=== PATIENT | male | born 1955 | race Caucasian/White ===

== ENCOUNTER 2020-04-27 13:50 | Emergency (ER) | payer MEDICARE, SELFPAY ==
[2020-04-27 14:13] VITALS: BP 113/79; PULSE 89; RESP 25; TEMP 36.7; O2SAT 98; BMI 21.3
--- NOTE | 2020-04-27 14:15 | ECG_ITS ---
[facility] Test Date: 2020-04-27 Pat Name: Ga Vanegas Department: Room: Gender: Male Videogame Tester: HE : 1955 Requested By: Eliu Coates Order Number: [id number] Reading MD: KYRA KING Measurements Intervals [place] Rate: 94 P: 62 [place]: 204 QRS: -10 QRSD: 107 T: 181 QT: 364 QTc: 456 Interpretive Statements SINUS RHYTHM POSSIBLE LEFT ATRIAL ENLARGEMENT [-0.1mV P WAVE IN V1/V2] POSSIBLE ANTERIOR MYOCARDIAL INFARCTION [30 ms Q WAVE IN V3/V4, OR R < 0.2 mV IN V4], OF INDETERMINATE AGE No previous ECG available for comparison Electronically Signed On 04-27-2020 18:01:49 WOOD LATHE OPERATOR by KYRA KING [id number]
--- NOTE | 2020-04-27 14:15 | XR_ITS ---
WS: [id number] PORTABLE CHEST HISTORY: chest pain COMPARISON: None available. Mild pulmonary venous congestion. Moderate RIGHT pleural effusion. Small LEFT pleural effusion. Cardiac size: Moderately enlarged heart. Mediastinum/Aorta: Mild atherosclerosis aorta. No osseous abnormality seen. XR/XR chest 1V portable [id number] IMPRESSION: 1. Mild pulmonary venous congestion and moderate cardiomegaly. 2. Moderate RIGHT and small LEFT pleural effusions.
--- NOTE | 2020-04-27 14:33 | USCV_ITS ---
Ga Vanegas Age: 64 Gender: M : 1955 Exam Date: 04/27/2020 14:56 Ordering Phys: Eliu Porter DO Technologist: Sunny Bailey Exam Location: [facility] [place] Indication: COLD FEET POOR PULSES Risk Factors: Smoker Previous Vascular Surgery: None RIGHT LEFT BP: 120.0 / 92.00 BP: 120.0/ 90.00 0 0 Waveform Velocity (cm/s) Velocity (cm/s) Waveform Triphasic 53.5 Iliac Prox 21.2 Triphasic Triphasic Iliac Mid Triphasic 48.2 26.7 Triphasic 53.5 Iliac Distal 23.0 Triphasic Triphasic 39.2 OPHTHALMIC MEDICAL TECHNOLOGIST 31.0 Triphasic Triphasic 49.0 SFA Prox 43.5 Triphasic Triphasic 38.4 SFA Mid 40.9 Triphasic Triphasic 37.7 SFA Dist 34.0 Triphasic Triphasic 21.2 POP 17.0 Triphasic Triphasic 36.1 QUARTER BACKER 33.6 Biphasic Triphasic 34.0 DPA 13.7 Biphasic 1.0 JOSE 1.0 FINDINGS Normal or near normal arterial Doppler waveforms. Normal arterial Doppler flow velocities. Normal resting ABIs bilaterally CONCLUSIONS No significant arterial obstruction, based on the above findings Dr Alpa Quintanilla MD [facility] (Electronically Signed) Final Date: 28 April 2020 14:24 S
--- NOTE | 2020-04-27 14:35 | ED_ITS ---
HPI - Chest Pain General: Chief Complaint: Chest Pain Stated Complaint: Legs swollen/Pain/SOB Time Seen by Provider: 04/27/20 14:15 History of Present Illness: HPI narrative: 64-year-old male presents emergency room is 2 separate complaints he has some chest discomfort that he gets from time to time along with shortness of breath with exertion. He is not having any pain now he did have some earlier today talking to him his something that occurs very regularly. He has no known history of coronary disease. He does have a history of COPD. And is a little more short of breath today is not had a productive cough no flulike symptoms. In addition he has bilateral painful lower extremities the lower half of his lower legs and his feet bilaterally. I cannot palpate pulses at the bedside. He states he was outside riding in a tractor and is socks froze to his feet when he got home he took them off and have been painful ever since. He went to see his primary care nurse practitioner and it was directed here because it was cool pulseless feet. Patient is a heavy smoker although he states he is cut back from the much as he used to smoke. MD complaint: chest pain Onset (ago): hour(s) Timing of current episode: episodic Prior episodes: Yes Onset: during exertion Pain location: substernal and left chest Pain radiation: none Severity: mild Quality: heaviness Relieving factors: rest Exacerbating factors: exertion Associated symptoms: Deny abdominal pain, diaphoresis, dyspnea, fever(s), leg edema, nausea, palpitations, sense of impending doom, syncope or vomiting Treatment prior to arrival: none Review of Systems Const: Denies: fever(s) or diaphoresis ENMT: Denies: throat pain, ear or mastoid pain, nasal discharge or nasal congestion Card: Denies: palpitations or syncope Resp: Denies: dyspnea GI: Denies: abdominal pain, nausea or vomiting : Denies: flank pain, dysuria, urinary frequency or urinary urgency Skin/Breast: Denies: rash or pruritus Physical Exam Const: COMMON NORMALS: no acute distress GENERAL APPEARANCE: cooperative and comfortable HENMT: COMMON NORMALS: normocephalic, atraumatic and hearing grossly normal bilaterally HEAD & SCALP: normocephalic and atraumatic Neck/C-Spine: COMMON NORMALS: no JVD Lymph: LYMPHATIC: no lymphadenopathy noted and no lymphedema noted Resp: COMMON NORMALS: normal respiratory effort, No retractions, No use of accessory muscles and clear to auscultation bilaterally AUSCULTATION: clear to auscultation bilaterally Cardio: COMMON NORMALS: no JVD, regular rate, regular rhythm and No murmurs present (Cardio) RATE: regular rate RHYTHM: regular rhythm GI: COMMON NORMALS: Soft to palpation and No hepatosplenomegaly present AUSCULTATION: Yes normoactive bowel sounds PALPATION: Yes Soft to palpation, No Tenderness to palpation present (GI), No Guarding due to palpation present (GI) and Yes No hepatosplenomegaly present Extremity: NARRATIVE EXTREMITY EXAM: Cool to the touch on the lower extremity no palpable pulses. No necrotic areas. No active wounds. Course Vital Signs: Vital signs: Vital Signs Temperature 98.0 F 04/27/20 14:13 Pulse Rate 81 04/27/20 16:28 Respiratory Rate 33 H 04/27/20 16:28 Blood Pressure 107/84 04/27/20 16:28 Pulse Oximetry 96 04/27/20 16:28 MDM - Chest Pain MDM Narrative: Medical decision making narrative: Duplex shows good blood flow. He does have some discoloration of his hands and feet I think he has basically a Raynaud's type phenomenon from his smoking discussed this with him. He did have an episode of chest pain is troponin is negative. Working to discharge him home and have him set up for a outpatient sestamibi stress test return if has further problems encouraged to stop smoking start aspirin daily. Lab Data: Labs: Lab Results 04/27/20 04/27/20 04/27/20 Range/Units 14:30 14:30 14:30 WBC 6.7 (4.0-10.0) 10^3/ uL RBC 4.55 (4.1-5.3) 10^6/u L Hgb 14.3 (11.7-16.6) g/dL Hct 45.3 (42.0-52.0) % MCV 99.6 H (80-94) fL MCH 31.4 (28.0-34.0) pg MCHC 31.6 (30.0-36.0) g/dL RDW 13.0 (12.1-15.1) % Plt Count 331 (130-400) 10^3/c mm MPV 9.5 (7.4-10.4) fL Neut % (Auto) 70.5 % Lymph % (Auto) 20.4 % Stark % (Auto) 7.9 % Eos % (Auto) 0.4 % Baso % (Auto) 0.7 % Neut # (Auto) 4.69 (1.8-7.7) 10^3/u L Lymph # (Auto) 1.4 (0.8-4.8) 10^3/u L Stark # (Auto) 0.5 (0.2-0.9) 10^3/u L Eos # (Auto) 0.0 (0.0-0.8) 10^3/u L Baso # (Auto) 0.1 (0.0-0.1) 10^3/u L Nucleated RBC % (a uto) 0 % Nucleated RBCs # 0.0 /100WBC Sodium 145 (136-145) mmol/L Potassium 3.9 (3.5-5.1) mmol/L Chloride 105 (98-107) mmol/L Carbon Dioxide 28 (22-29) mmol/L Anion Gap 15.9 (5-19) BUN 13 (8-23) mg/dL Creatinine 0.8 (0.7-1.2) mg/dL GFR Calculation 97.0 (90-130) mL/min Glucose 75 (65-115) mg/dL Calculated Osmolal ity 299 H (285-295) mOsm/k g Calcium 9.1 (8.5-10.5) mg/dL Total Bilirubin 0.7 (0.15-1.2) mg/dL AST 20 (0-40) U/L ALT 20 (0-41) U/L Alkaline Phosphata se 122 (40-130) IU/L Troponin T Baselin e 34 H (0-15) ng/L Troponin T 120 Min emmonak (0-15) ng/L Delta Troponin T (0-10) ABS# Total Protein 6.5 L (6.6-8.7) g/dL Albumin 4.1 (3.5-5.2) g/dL Globulin 2.4 (1.3-4.6) g/dL 04/27/20 Range/Units 16:13 WBC (4.0-10.0) 10^3/ uL RBC (4.1-5.3) 10^6/u L Hgb (11.7-16.6) g/dL Hct (42.0-52.0) % MCV (80-94) fL MCH (28.0-34.0) pg MCHC (30.0-36.0) g/dL RDW (12.1-15.1) % Plt Count (130-400) 10^3/c mm MPV (7.4-10.4) fL Neut % (Auto) % Lymph % (Auto) % Stark % (Auto) % Eos % (Auto) % Baso % (Auto) % Neut # (Auto) (1.8-7.7) 10^3/u L Lymph # (Auto) (0.8-4.8) 10^3/u L Stark # (Auto) (0.2-0.9) 10^3/u L Eos # (Auto) (0.0-0.8) 10^3/u L Baso # (Auto) (0.0-0.1) 10^3/u L Nucleated RBC % (a uto) % Nucleated RBCs # /100WBC Sodium (136-145) mmol/L Potassium (3.5-5.1) mmol/L Chloride (98-107) mmol/L Carbon Dioxide (22-29) mmol/L Anion Gap (5-19) BUN (8-23) mg/dL Creatinine (0.7-1.2) mg/dL GFR Calculation (90-130) mL/min Glucose (65-115) mg/dL Calculated Osmolal ity (285-295) mOsm/k g Calcium (8.5-10.5) mg/dL Total Bilirubin (0.15-1.2) mg/dL AST (0-40) U/L ALT (0-41) U/L Alkaline Phosphata se (40-130) IU/L Troponin T Baselin e (0-15) ng/L Troponin T 120 Min emmonak 32.81 H (0-15) ng/L Delta Troponin T -1.19 L (0-10) ABS# Total Protein (6.6-8.7) g/dL Albumin (3.5-5.2) g/dL Globulin (1.3-4.6) g/dL Discharge Plan Discharge Patient Disposition: Home Clinical Impression: Atypical chest pain, COPD (chronic obstructive pulmonary disease), Continuous tobacco abuse Condition: Stable Prescriptions: New aspirin 81 mg tablet,delayed release (DR/EC) 81 mg PO DAILY Qty: 30 RF: 0 No Action multivitamin Tablet 1 tab PO DAILY RF: 0 Tylenol 325 mg Tablet 325 - 650 mg PO Q6H PRN (Reason: Pain) RF: 0 Vitamin B-12 1 tab PO DAILY RF: 0 Discharge Orders: Discharge ED (Routine); Ordered 04/27/20 Ordered By: lEiu Porter Discharge Diet: Cardiac Discharge Activity: Limit activity as instructed Activity Restrictions/Additional Instructions: Management will call to set up a sestamibi stress test for you as an outpatient. Return if you have further problems. Coding Level of Care Code ED District Manager Major Accounts Sales for Carol Fweneida Exam Detailed
[2020-04-27 14:46] LABS: Basophils # 0.1 10^3/uL (0.0-0.1); Basophils % 0.7 %; Eosinophils % 0.4 %; Hematocrit 45.3 % (42.0-52.0); Hemoglobin 14.3 g/dL (11.7-16.6); Lymphocytes # 1.4 10^3/uL (0.8-4.8); Lymphocytes % 20.4 %; Mean Corpuscular HGB Conc 31.6 g/dL (30.0-36.0); Mean Corpuscular Hemoglobin 31.4 pg (28.0-34.0); Mean Corpuscular Volume 99.6 fL (80-94); Mean Platelet Volume 9.5 fL (7.4-10.4); Monocytes # 0.5 10^3/uL (0.2-0.9); Monocytes % 7.9 %; Neutrophils # 4.69 10^3/uL (1.8-7.7); Neutrophils % 70.5 %; Nucleated Red Blood Cells % 0 %; Platelet Count 331 10^3/cmm (130-400); Red Blood Count 4.55 10^6/uL (4.1-5.3); White Blood Count 6.7 10^3/uL (4.0-10.0)
[2020-04-27 15:02] LABS: Alanine Aminotransferase 20 U/L (0-41); Albumin Level 4.1 g/dL (3.5-5.2); Alkaline Phosphatase 122 IU/L (40-130); Anion Gap 15.9 (5-19); Aspartate Amino Transferase 20 U/L (0-40); Blood Urea Nitrogen 13 mg/dL (8-23); Calcium 9.1 mg/dL (8.5-10.5); Carbon Dioxide 28 mmol/L (22-29); Chloride 105 mmol/L (98-107); Globulin 2.4 g/dL (1.3-4.6); Glucose 75 mg/dL (65-115); Osmolality Calculated 299 mOsm/kg (285-295); Potassium 3.9 mmol/L (3.5-5.1); Sodium 145 mmol/L (136-145); Total Bilirubin 0.7 mg/dL (0.15-1.2); Total Protein 6.5 g/dL (6.6-8.7)
[2020-04-27 15:04] LABS: Troponin(5th) Baseline 34 ng/L (0-15)
[2020-04-27 15:28] VITALS: BP 118/92; PULSE 92; RESP 33; O2SAT 96; O2SAT 98
--- NOTE | 2020-04-27 16:15 | ECG_ITS ---
[facility] Test Date: 2020-04-27 Pat Name: Ga Vanegas Department: Room: Gender: Male Android Architect: HE : 1955 Requested By: Eliu Coates Order Number: [id number] Paul MD: Alpa Quintanilla M.D. Measurements Intervals [place] Rate: 138 P: 63 VT: 207 QRS: -18 QRSD: 110 T: 184 QT: 369 QTc: 560 Interpretive Statements SINUS TACHYCARDIA WITH FREQUENT VENTRICULAR PREMATURE COMPLEXES ST DEVIATION AND MODERATE T-WAVE ABNORMALITY, CONSIDER LATERAL ISCHEMIA [-0.1+ mV T WAVE IN I/aVL/V5/V6] No previous ECG available for comparison Electronically Signed On 04-28-2020 20:15:51 COTTRELL BLOWER by Alpa Quintanilla M.D. [id number]
[2020-04-27 16:28] VITALS: BP 107/84; PULSE 81; RESP 33; O2SAT 96
[2020-04-27 16:37] LABS: Troponin 5 2HR 32.81 ng/L (0-15)
[2020-04-27 16:38] LABS: Troponin 5 2HR Delta -1.19 ABS# (0-10)
[2020-04-27 17:00] VITALS: BP 128/84; PULSE 83; RESP 30; O2SAT 97
[2020-04-27 17:49] VITALS: BP 128/84; PULSE 83; RESP 30; O2SAT 97
--- NOTE | 2020-04-28 10:00 | DCPLANNER ---
pharmacy informatics manager had message to schedule an outpatient stress test for patient. pharmacy informatics manager got order signed, faxed the order to centralized scheduling, will call for appointment information.
--- NOTE | 2020-05-04 13:10 | DCPLANNER ---
Patient had stess test scheduled on 05/04/20 @ 0845 - appt cancelled
== END 2020-04-27 17:52 | disposition home or self-care (01) ==
PROVIDERS: Emergency Provider Family Medicine
DX: R07.89 Other chest pain (principal); J44.9 Chronic obstructive pulmonary disease, unspecified
CPT/HCPCS: 12345; 71045; 80053; 84484; 85025; 93005; 93925; 99283; 99284

== ENCOUNTER 2020-04-29 18:40 | Inpatient (IN) | payer MEDICARE, SELFPAY ==
[2020-04-29 19:21] VITALS: BMI 23.8
[2020-04-29 19:22] VITALS: BP 118/84; PULSE 91; RESP 16; TEMP 36.1; O2SAT 98
[2020-04-29 20:00] VITALS: BP 114/78; PULSE 83; RESP 22; TEMP 36.9; O2SAT 98
[2020-04-29 20:39] VITALS: PULSE 83
--- NOTE | 2020-04-29 20:44 | P.HP_ITS ---
Providers/Chief Complaint Admitting Physician: León Hagan MD Chief Complaint: COPD, CHF History of Present Illness Ga Vanegas is a 64 year old male recently diagnosed with congestive heart failure presented to the emergency department at [place] with a complaint of progressive shortness of breath and chest pain. Patient was in the emergency department a couple of days ago where his chest x-ray demonstrated pulmonary vascular congestion, small bilateral pleural effusion and cardiomegaly. Patient was diagnosed with atypical chest pain, his troponin was negative and was therefore discharged to have a stress test done as an outpatient. Patient was noted to have cyanosis of both hands and feet. Arterial Doppler of the lower extremities was done which was reported as normal with no significant arterial occlusion. Patient was at [facility] today where repeat chest x-ray demonstrated pulmonary vascular congestion. He was given IV Lasix, bronchodilators and then referred to be directly admitted here for further management of CHF. Patient stated he was feeling better when I saw him for examination on the medical floor. Review of Systems Narrative: Patient at the moment denies any chest pain. He denies any hea dache, he denies any palpitation. He endorsed orthopnea. Except as documented, all other systems reviewed and negative. Medications/Allergies Home Medications Medication Instructions Recorded Confirmed Last Taken Type aspirin 81 mg PO DAILY #30 tab 04/27/20 04/30/20 04/29/20 Rx Allergies Allergy/AdvReac Type Severity Reaction Status Date / Time No Known Allergies Allergy Verified 04/30/20 03:21 PFSH Acute PFSH: Medical History (Updated 04/30/20 @ 07:58 by Kameron Leger MD) Atypical chest pain Continuous tobacco abuse COPD (chronic obstructive pulmonary disease) Family History (Updated 04/29/20 @ 21:09 by Kameron Leger MD) Father CAD (coronary artery disease) Social History (Updated 04/29/20 @ 21:09 by Kameron Leger MD) Smoking and tobacco status: current every day smoker Alcohol intake: current Alcohol intake frequency: few times a week Substance/Drug Use: never Housing: House Vitals/I&O/Wt Last Vital Signs Temp 98.4 F 04/29/20 20:00 Pulse 83 04/29/20 20:00 Resp 22 H 04/29/20 20:00 BP 114/78 04/29/20 20:00 Pulse Ox 98 04/29/20 20:00 Weight last 48 hrs Weight 70.896 kg Physical Exam Const: COMMON NORMALS: no acute distress, patient oriented x3 and alert GENERAL APPEARANCE: disheveled HENMT: COMMON NORMALS: normocephalic and atraumatic MOUTH: Normal oral and palatal mucosa present Eye: COMMON NORMALS: Equal, round and reactive pupils present, EOMs intact bilaterally, conjunctivae normal and no scleral icterus Neck/C-Spine: COMMON NORMALS: supple, no JVD and Thyroid normal Lymph: LYMPHATIC: no lymphadenopathy noted Chest: COMMONS NORMALS: normal inspection of the chest and normal palpation of entire chest wall Resp: COMMON NORMALS: normal respiratory effort, No retractions and No use of accessory muscles AUSCULTATION: rales bilateral at the base Cardio: COMMON NORMALS: regular rate, regular rhythm, S1 normal heart sound present, S2 normal heart sound present and No murmurs present (Cardio) GI: COMMON NORMALS: Normal to inspection, nondistended, normoactive bowel sounds present, Soft to palpation, non-tender, No hepatosplenomegaly present and no bruits : COMMON NORMALS: Yes no CVA tenderness Back/Pelvis: COMMON NORMALS: thoraco-lumbar ROM normal Extremity: GENERAL: Yes cyanosis (Bilateral feet up to ankles. Bilateral hands) Neuro: COMMON NORMALS: patient oriented x3, CN's II-XII intact bilaterally, no focal motor deficits and no sensory deficits noted Psych: COMMON NORMALS: mental status grossly normal, Normal thought process present, cooperative, normal affect and speech normal Skin: GENERAL SKIN EXAM: no rashes or lesions noted and turgor normal Data : 04/30/20 05:27 04/30/20 05:27 A&P Assessment and plan (1) Acute heart failure: Status: Acute (2) Peripheral cyanosis: Status: Acute (3) COPD (chronic obstructive pulmonary disease): Status: Chronic (4) Continuous tobacco abuse: Status: Chronic Additional A&P Information Admit patient to the medical floor. Start IV Lasix 40 mg every 12 hours. Trend troponin Obtain echocardiogram Bronchodilators. COVID-19 test done at [place] is presumptively negative. Consult to cardiology. Daily weight, monitor input and output. Check arterial blood gas. Patient will need outpatient work-up for Raynaud's disease given peripheral cyanosis. it could be smoking-related. Patient advised to quit smoking. Attestations Medical Necessity Statement*: Patient need to be hospitalized for further evaluation and manage management of acute congestive heart failure. He is expected to spend more than 2 midnights. Time Spent in Patient Care: 63 minutes. Coding Level of Care Code Acute General Machinist for Celso Fwd Exam Comprehensive Diagnoses Acute heart failure I50.9 Peripheral cyanosis R23.0 COPD (chronic obstructive pulmonary disease) J44.9 Continuous tobacco abuse Z72.0
[2020-04-29] MEDS: FUROsemide 10 mg/mL SDV 4mL 40 MG IVP (21:08)
[2020-04-29] MEDS: enoxaparin 40 mg/0.4 mL Syringe SUBCUT (21:11)
[2020-04-30] VITALS: BP 108/73; PULSE 86; RESP 26; TEMP 36.6; O2SAT 93
[2020-04-30] MEDS: acetaminophen 325 mg Tablet 650 MG PO ×2 (02:24→20:22)
[2020-04-30 04:00] VITALS: BP 117/82; PULSE 90; RESP 24; TEMP 36.6; O2SAT 96
[2020-04-30 06:16] LABS: Basophils % 0.1 %; Hematocrit 44.2 % (42.0-52.0); Hemoglobin 14.1 g/dL (11.7-16.6); Lymphocytes # 0.5 10^3/uL (0.8-4.8); Mean Corpuscular HGB Conc 31.9 g/dL (30.0-36.0); Mean Corpuscular Hemoglobin 31.5 pg (28.0-34.0); Mean Corpuscular Volume 98.7 fL (80-94); Monocytes # 0.8 10^3/uL (0.2-0.9); Neutrophils # 6.39 10^3/uL (1.8-7.7); Neutrophils % 82.6 %; Nucleated Red Blood Cells % 0 %; Platelet Count 319 10^3/cmm (130-400); Red Blood Count 4.48 10^6/uL (4.1-5.3); Red Cell Distribution Width 12.9 % (12.1-15.1); White Blood Count 7.7 10^3/uL (4.0-10.0)
--- NOTE | 2020-04-30 06:42 | PC.NURSE ---
Report to Anita GUZMAN at this time.
[2020-04-30 06:46] LABS: Anion Gap 11.6 (5-19); Blood Urea Nitrogen 20 mg/dL (8-23); Calcium 9.1 mg/dL (8.5-10.5); Carbon Dioxide 33 mmol/L (22-29); Chloride 98 mmol/L (98-107); Chol HDL Ratio 2.98 mg/dL (1.0-5.00); Cholesterol 152 mg/dL (0-200); Creatinine Clr Calc Pharmacy 90.0557; Glucose 88 mg/dL (65-115); HDL Cholesterol 51 mg/dL (60-100); LDL Cholesterol Calculated 89 mg/dL (50-129); LDL HDL Ratio 1.75 RATIO (0.00-3.22); Magnesium 2.1 mg/dL (1.7-2.3); Osmolality Calculated 290 mOsm/kg (285-295); Phosphorus 4.3 mg/dL (2.5-4.5); Potassium 3.6 mmol/L (3.5-5.1); Sodium 139 mmol/L (136-145); Thyroid Stimulating Hormone 0.61 uIU/mL (0.27-4.20); Triglycerides 61 mg/dL (0-150)
[2020-04-30 07:10] LABS: Estmated Average Glucose 123; Hemoglobin A1C 5.9 % (4.0-6.0)
[2020-04-30 08:00] VITALS: BP 121/84; PULSE 69; RESP 17; TEMP 37.1; O2SAT 95
[2020-04-30] MEDS: aspirin 81 mg EC Tablet PO (08:58)
[2020-04-30] MEDS: FUROsemide 10 mg/mL SDV 4mL 40 MG IVP ×2 (08:58→20:22)
--- NOTE | 2020-04-30 11:04 | PM.PN ---
Subjective Subjective: Interval history: Patient reports feeling better today. He is less short of breath. Reports that he has been having gradually worsening lower extremity swelling and dyspnea on exertion. He does report off-and-on chest discomfort on the left with exertion for the last year or so. Vitals/I&O/Wt Last Vital Signs Temp 98.8 F 04/30/20 08:00 Pulse 69 04/30/20 08:00 Resp 17 04/30/20 08:00 BP 121/84 04/30/20 08:00 Pulse Ox 95 04/30/20 08:00 04/29/20 04/30/20 04/30/20 22:59 06:59 14:59 Intake Total 240 / 240 240 / 480 360 / 360 Output Total 1400 / 1400 Balance 240 / 240 -1160 / -920 360 / 360 Weight last 48 hrs Weight 70.307 kg Weight 70.896 kg Physical Exam Narrative: EXAM NARRATIVE: Minimal bibasilar Rales. Heart is regular. Abdomen soft and nontender with positive bowel sounds. 1+ lower extremity edema. Data : 04/30/20 05:27 04/30/20 05:27 A&P Assessment and plan (1) Acute heart failure: Status: Acute (2) Peripheral cyanosis: Status: Acute (3) COPD (chronic obstructive pulmonary disease): Status: Chronic (4) Continuous tobacco abuse: Status: Chronic (5) Stable angina: Status: Acute Additional A&P Information PLAN: Continue with diuresis. Awaiting echocardiogram and depending on findings we will consider further cardiac evaluation on outpatient versus inpatient basis. Attestations Medical Necessity Statement*: Patient with stable angina and heart failure requires close inpatient monitoring, treatment and evaluation. Time Spent in Patient Care: 16 - 35 minutes Coding Level of Care Code Acute Spotlight Operator for [facility] Fwd Diagnoses Acute heart failure I50.9 Peripheral cyanosis R23.0 COPD (chronic obstructive pulmonary disease) J44.9 Continuous tobacco abuse Z72.0 Stable angina I20.8
[2020-04-30 11:24] VITALS: BP 116/79; PULSE 75; RESP 16; TEMP 37.2; O2SAT 94
--- NOTE | 2020-04-30 13:36 | PC.CHAP ---
Pastoral Care Encounter/Spiritual Assessment Type of Contact [] Declined industrial relations analyst visit [] Patient/Family/Request visit [] Outpatient visit [] Follow-up visit [] Physician referral [] Code/Alert [xx] Routine visit [] Staff referral [] Actively dying [] Patient sleeping [] Family support [] [] Out of room [] Palliative care [] [] Receiving care in room [] Pre-surgical visit [] Trauma [] Long length of stay [] ICU visit [] Other: Relational/Emotional Strength [xx] Patient feels connected with others/family/visitors/staff [] Distress [] Loneliness/isolation [] Abandonment Spirituality of Patient [xx] Person of Yue [] Attends Evangelical of their Yue [xx] Believes in Prayer [] Reads Bible or Restoration materials [] There are Spiritual issues to be addressed Process Steward Interventions [xx] Prayer [xx] Active listening [] Non-anxious presence [] Spiritual/emotional support [] Crisis/trauma care [] Spiritual counseling [] Bereavement support [] Provided bereavement packet [] Provided Bible/devotional materials [] Provided toy/stuffed animal, coloring book to patient or family member [] Provided Communion [] Anointing/Pomaria [] Salvation [xx] Completed spiritual assessment [] Other: Impact on Illness or Injury [] Angry [] Fearful [] Anxious [] Often cries [] Exhaustion [] Unable to work [] Unable to attend mandaeism [] Unable to walk/stand [] Unable to read [] Unable to drive [] Unable to eat/drink [] Unable to sleep [] Unable to be with family [] Patient intubated [] Other: Summary Patient was concerned about what tests and their outcome might be. He anticipates another 2 - 3 days in hospital. Process Steward prayed accordingly. Time spent with patient 6 minutes
--- NOTE | 2020-04-30 14:30 | PC.RESP ---
Smoking Cessation and Pulmonary Rehab information sent to patient.
--- NOTE | 2020-04-30 15:49 | PC.NURSE ---
Dr. Hagan notified of request for nicotine patch, new order received, see MAR for further details.
[2020-04-30 16:00] VITALS: BP 116/79; PULSE 75; RESP 16; TEMP 37.2; O2SAT 94
[2020-04-30] MEDS: nicotine 21 mg Patch 1 PATCH TRANSDERMA (16:47)
[2020-04-30 20:00] VITALS: BP 110/80; PULSE 92; RESP 18; TEMP 36.3; O2SAT 97
[2020-04-30] MEDS: enoxaparin 40 mg/0.4 mL Syringe SUBCUT (20:22)
--- NOTE | 2020-04-30 20:39 | USCV_ITS ---
Ga Vanegas Age: 64 Gender: M : 1955 Exam Date: 04/30/2020 05:38 Ordering Phys: Kameron Leger MD Technologist: Sunny Bailey Exam Location: [facility] [place] Indication: MURMUR BP: 132 / 75 HR: 91 Rhythm: Sinus Technical Quality: Good MEASUREMENTS (Male / Female) Normal Values 2D ECHO LV Diastolic Diameter PLAX 5.5 cm 4.2 - 5.9 / 3.9 - 5.3 cm LV Systolic Diameter PLAX 4.7 cm IVS Diastolic Thickness 1.4 cm 0.6 - 1.0 / 0.6 - 0.9 cm IVS Systolic Thickness 1.5 cm LVPW Diastolic Thickness 1.3 cm 0.6 - 1.0 / 0.6 - 0.9 cm LVPW Systolic Thickness 1.3 cm LVOT Diameter 2.0 cm LV Ejection Fraction 2D Teich 26.6 % LV Ejection Fraction MOD 2C 21.8 % LV Ejection Fraction 2C AL 22.4 % LA Diameter 5.3 cm LA Width 5.0 cm LA Height 5.9 cm RA Width 5.7 cm RA Height 7.1 cm Aorta at Sinotubular Diameter 3.5 cm M-MODE LV Diastolic Diameter MM 6.9 cm 4.2 - 5.9 / 3.9 - 5.3 cm LV Systolic Diameter MM 5.6 cm LV Ejection Fraction MM Teich 36.3 % IVS Diastolic Thickness MM 1.2 cm 0.6 - 1.0 / 0.6 - 0.9 cm IVS Systolic Thickness MM 1.6 cm LVPW Diastolic Thickness MM 1.1 cm 0.6 - 1.0 / 0.6 - 0.9 cm LVPW Systolic Thickness MM 1.5 cm RV Diastolic Diameter MM 1.8 cm Aortic Annulus Diameter 3.9 cm LA Ao Ratio MM 1.6 MV E Point Septal Separation 1.6 cm DOPPLER AV Peak Velocity 314.0 cm/s LVOT Peak Velocity 72.0 cm/s AV Area Cont Eq vti 0.8 cm squared AV Area Cont Eq pk 0.7 cm squared MV Area PHT 5.0 cm squared Mitral E to A Ratio 2.5 MV E' Velocity 42.0 cm/s Mitral E to MV E' Ratio 12.3 Mitral E to LV E' Lateral Ratio 9.1 Mitral E to LV E' Septal Ratio 19.6 TR Peak Velocity 353.0 cm/s TR Peak Gradient 49.8 mmHg PV Peak Velocity 63.0 cm/s RV Acceleration Time 0.1 s FINDINGS Left Ventricle Moderately increased left ventricular cavity size. Severely decreased left ventricular systolic function. Global left ventricular hypokinesis. Left ventricular ejection fraction is estimated at 36 %. Grade III/IV diastolic dysfunction (restrictive filling pattern), severely elevated filling pressures. Right Ventricle The right ventricle is normal in size and function. Moderate pulmonary hypertension, RVSP 36 mmHg. Right Atrium The right atrium is normal in size. Left Atrium The left atrium is normal in size. Mitral Valve Moderately thickened mitral valve. No mitral valve stenosis. Moderate mitral valve regurgitation. Aortic Valve Severe aortic valve calcification. Severe aortic valve stenosis, mean gradient 16.9 mmHg, NAGA 0.8 cm squared. Mild aortic valve regurgitation. Tricuspid Valve Severe tricuspid valve regurgitation. Pulmonic Valve Structurally normal pulmonic valve without significant stenosis. There is no pulmonic regurgitation. Pericardium Normal pericardium without effusion. Aorta Normal ascending aorta dimension. CONCLUSIONS 1-Moderately increased left ventricular cavity size. Severely decreased left ventricular systolic function. Global left ventricular hypokinesis. Left ventricular ejection fraction is estimated at 36 %. Grade III/IV diastolic dysfunction (restrictive filling pattern), severely elevated filling pressures. 2-The right ventricle is normal in size and function. Moderate pulmonary hypertension, RVSP 36 mmHg. 3-Severe aortic valve calcification. Severe aortic valve stenosis, mean gradient 16.9 mmHg, NAGA 0.8 cm squared. Mild aortic valve regurgitation. There appeared to be low gradient severe aortic stenosis. 4-Moderately thickened mitral valve. No mitral valve stenosis. Moderate mitral valve regurgitation. 5-Severe tricuspid valve regurgitation. 6-There is no pericardial effusion. 7-The right ventricle is normal in size and function. Moderate pulmonary hypertension, RVSP 36 mmHg. 8-There are no prior echocardiogram studies to compare. Melida Crawford MD (Electronically Signed) Final Date: 30 April 2020 19:01 S
[2020-05-01] VITALS: BP 114/83; PULSE 88; RESP 22; TEMP 36.4; O2SAT 95
[2020-05-01 04:00] VITALS: BP 113/76; PULSE 87; RESP 20; TEMP 36.4; O2SAT 95
--- NOTE | 2020-05-01 06:36 | PC.NURSE ---
ENd of Shift Report Patient has 1300 out for my shift. Patient was able to rest. Patient is concerned about the snowy weather that is predicted and would like to be discharged today if at all possible. Patient is A&Ox3.
--- NOTE | 2020-05-01 07:03 | SUR.OPER ---
Report to Cassidy GUZMAN
[2020-05-01 08:00] VITALS: BP 102/80; PULSE 77; RESP 18; TEMP 36.4; O2SAT 97
[2020-05-01] MEDS: aspirin 81 mg EC Tablet PO (09:31)
[2020-05-01] MEDS: nicotine 21 mg Patch 1 PATCH TRANSDERMA (09:31)
[2020-05-01] MEDS: FUROsemide 10 mg/mL SDV 4mL 40 MG IVP ×2 (09:32→20:58)
[2020-05-01 11:20] VITALS: BP 98/68; PULSE 74; RESP 18; TEMP 36.7; O2SAT 93
--- NOTE | 2020-05-01 14:16 | PM.PN ---
Subjective Subjective: Interval history: Patient reports feeling much better and wants to go home. Denies chest pain currently. Echo shows decreased EF and diastolic dysfunction. Vitals/I&O/Wt Last Vital Signs Temp 98.0 F 05/01/20 11:20 Pulse 74 05/01/20 11:20 Resp 18 05/01/20 11:20 BP 98/68 05/01/20 11:20 Pulse Ox 93 05/01/20 11:20 04/30/20 05/01/20 05/01/20 22:59 06:59 14:59 Intake Total 420 / 780 240 / 1020 660 / 660 Output Total 1200 / 2800 300 / 3100 820 / 820 Balance -780 / -2020 -60 / -2080 -160 / -160 Weight last 48 hrs Weight 69.4 kg Weight 70.307 kg Weight 70.896 kg Physical Exam Narrative: EXAM NARRATIVE: Minimal bibasilar Rales. Heart is regular. Abdomen soft and nontender with positive bowel sounds. 1+ lower extremity edema. Data : 04/30/20 05:27 04/30/20 05:27 A&P Assessment and plan (1) Acute heart failure: Acute combined heart failure. EF 36% Status: Acute (2) Peripheral cyanosis: Status: Acute (3) COPD (chronic obstructive pulmonary disease): Status: Chronic (4) Continuous tobacco abuse: Status: Chronic (5) Stable angina: Status: Acute Additional A&P Information PLAN: Continue with diuresis. Discussed with Dr. Crawford who will see patient in consultation for coronary angiography and medication adjustment. Attestations Medical Necessity Statement*: Patient with heart failure requires close inpatient monitoring, evaluation and treatment Coding Level of Care Code Acute Hematology Specialist for [facility] Diagnoses Acute heart failure I50.9 Peripheral cyanosis R23.0 COPD (chronic obstructive pulmonary disease) J44.9 Continuous tobacco abuse Z72.0 Stable angina I20.8
--- NOTE | 2020-05-01 14:53 | P.CONIM_ITS ---
Providers/Reason For Consult Consulting Physican/Specialty*: Cardiology Reason for Consult*: New onset of congestive heart failure, moderate to severe aortic stenosis, moderate mitral and severe tricuspid valve regurgitation, Requesting Physcian: Dr. Hagan Attending Physician: León Hagan MD History of Present Illness History of Present Illness Ga Vanegas is a 64 year old male past medical history significant for continuous tobacco abuse, COPD who has never been doing physician presented with worsening of shortness of breath PND orthopnea and chest tightness. He was noted to be in heart failure he was started on diuresis and ruled out for acute coronary syndrome. Echocardiogram was performed suggestive of severely depressed ejection fraction less than 36%, moderate to severe aortic stenosis with low pressure gradient cannot rule out pseudoaortic stenosis, new onset LV dysfunction moderate pulmonary hypertension moderate mitral regurgitation and severe tricuspid valve regurgitation. It is the reason we have been asked to come and see him. According to the patient he is feeling little better now. He denies any prior stress test or angiogram or any cardiac work-up. Review of Systems Narrative: Patient at the moment denies any chest pain. He denies any headache, he denies any palpitation. He endorsed orthopnea. Except as documented, all other systems reviewed and negative. Meds/Allergies Home Medications and Allergies Home Medications Medication Instructions Recorded Confirmed Last Taken Type aspirin 81 mg PO DAILY #30 tab 04/27/20 04/30/20 04/29/20 Rx Allergies Allergy/AdvReac Type Severity Reaction Status Date / Time No Known Allergies Allergy Verified 04/30/20 03:21 Current Medications Current Medications Generic Name Dose Route Start Last Admin Trade Name Freq PRN Reason Stop Dose Admin Acetaminophen 650 mg 04/29/20 20:39 04/30/20 20:22 Acetaminophen 325 Mg Tablet PO 650 mg Q6H PRN Administration Mild/Mod Pain Or Temp >/= 101 Aspirin 81 mg 04/30/20 09:00 05/01/20 09:31 Aspirin 81 Mg Ec Tablet PO 81 mg DAILY EDEN Administration Enoxaparin Sodium 40 mg 04/29/20 20:45 04/30/20 20:22 Enoxaparin 40 Mg/0.4 Ml Syringe SUBCUT 40 mg Q24H EDEN Administration Furosemide 40 mg 04/29/20 20:45 05/01/20 09:32 Furosemide 10 Mg/Ml Sdv 4ml IVP 40 mg Q12H EDEN Administration Nicotine 1 patch 04/30/20 17:00 05/01/20 09:31 Nicotine 21 Mg Patch TRANSDERMA 1 patch DAILY EDEN Administration PFSH Acute PFSH: Medical History (Updated 05/01/20 @ 19:43 by Melida Crawford MD) Atypical chest pain Continuous tobacco abuse COPD (chronic obstructive pulmonary disease) Family History (Updated 04/29/20 @ 21:09 by Kameron Leger MD) Father CAD (coronary artery disease) Social History (Updated 04/29/20 @ 21:09 by Kameron Leger MD) Smoking and tobacco status: current every day smoker Alcohol intake: current Alcohol intake frequency: few times a week Substance/Drug Use: never Housing: House Vitals/I&O/Wt Last Vital Signs Temp 98.0 F 05/01/20 11:20 Pulse 74 05/01/20 11:20 Resp 18 05/01/20 11:20 BP 98/68 05/01/20 11:20 Pulse Ox 93 05/01/20 11:20 04/30/20 05/01/20 05/01/20 22:59 06:59 14:59 Intake Total 420 / 780 240 / 1020 660 / 660 Output Total 1200 / 2800 300 / 3100 820 / 820 Balance -780 / -2020 -60 / -2080 -160 / -160 Weight last 48 hrs Weight 153 lb Weight 155 lb Weight 156 lb 4.8 oz Data Other Data: Attestation for Other Data: I personally reviewed and interpreted the following: Other data: SINUS TACHYCARDIA WITH FREQUENT VENTRICULAR PREMATURE COMPLEXES ST DEVIATION AND MODERATE T-WAVE ABNORMALITY, CONSIDER LATERAL ISCHEMIA [-0.1+ mV T WAVE IN I/aVL/V5/V6] No previous ECG available for comparison Electronically Signed On 04-28-2020 20:15:51 OIL EXTRACTOR by Alpa uQintana A&P Assessment and plan (1) New onset of congestive heart failure: Patient has new onset of heart failure with severely depressed LV function etiology could be ischemic versus valvular. Patient has moderate to severe aortic stenosis with low pressure gradient due to LV dysfunction. He is being diuresed. Continue IV diuresis. Once euvolemic we may will proceed with left and right heart cath for risk stratification and before recommending him aortic valve replacement. Status: Acute (2) Severe aortic stenosis: Patient has severe aortic stenosis as evident by echocardiogram. Once euvolemic will proceed with left and right heart cath. Patient will be requiring AVR in the near future. Status: Acute (3) COPD (chronic obstructive pulmonary disease): As per medicine. Status: Chronic Qualifiers: COPD type: emphysema Emphysema type: other Qualified Code(s): J43.8 - Other emphysema Consult Attestations Medical Necessity Statement: Patient require continuation hospitalization for above defined care. Coding Level of Care Code New Pt Acute Burglary Investigator for g Fwd Patient Type New History Detailed Exam Detailed Medical Decision Making Moderate Complexity Diagnoses New onset of congestive heart failure I50.9 Severe aortic stenosis I35.0 COPD (chronic obstructive pulmonary disease) J43.8 COPD type: emphysema Emphysema type: other
[2020-05-01 15:50] VITALS: BP 112/81; PULSE 89; RESP 18; TEMP 36.6; O2SAT 94
[2020-05-01 20:00] VITALS: BP 108/57; PULSE 87; RESP 20; TEMP 36.4; O2SAT 93
[2020-05-01] MEDS: enoxaparin 40 mg/0.4 mL Syringe SUBCUT (20:06)
[2020-05-02] VITALS: BP 115/81; PULSE 95; RESP 22; TEMP 36.4; O2SAT 98
[2020-05-02 04:00] VITALS: BP 113/79; PULSE 89; RESP 22; TEMP 36.4; O2SAT 94
[2020-05-02 07:47] VITALS: BP 114/85; PULSE 89; RESP 16; TEMP 36.2; O2SAT 94
[2020-05-02] MEDS: FUROsemide 10 mg/mL SDV 4mL 40 MG IVP ×2 (09:00→21:29)
[2020-05-02] MEDS: aspirin 81 mg EC Tablet PO (09:00)
[2020-05-02] MEDS: nicotine 21 mg Patch 1 PATCH TRANSDERMA (09:01)
--- NOTE | 2020-05-02 10:00 | PC.SOCIAL ---
Pg 2 IMM Explained to pt Pg 2 IMM. No questions voiced. Provided a copy to pt. Signed, dated, & timed a copy & placed in chart.
--- NOTE | 2020-05-02 11:02 | PM.PN ---
Subjective Subjective: Interval history: Patient denies shortness of breath or chest pain this morning. Patient was seen by Dr. Crawford and plan to perform coronary angiogram tomorrow morning. Vitals/I&O/Wt Last Vital Signs Temp 97.1 F L 05/02/20 07:47 Pulse 89 05/02/20 07:47 Resp 16 05/02/20 07:47 BP 114/85 05/02/20 07:47 Pulse Ox 94 05/02/20 07:47 05/01/20 05/02/20 05/02/20 22:59 06:59 14:59 Intake Total 240 / 240 Output Total 1750 / 2570 675 / 3245 1275 / 1275 Balance -1750 / -1910 -675 / -2585 -1035 / -1035 Weight last 48 hrs Weight 71.532 kg Weight 69.4 kg Physical Exam Narrative: EXAM NARRATIVE: Lungs are clear. Heart is regular. Abdomen soft and nontender with positive bowel sounds. Trace to 1+ lower extremity edema. Data : 04/30/20 05:27 04/30/20 05:27 A&P Assessment and plan (1) Acute heart failure: Acute combined heart failure. EF 36% Status: Acute (2) Peripheral cyanosis: Status: Acute (3) COPD (chronic obstructive pulmonary disease): Status: Chronic Qualifiers: COPD type: emphysema Emphysema type: other Qualified Code(s): J43.8 - Other emphysema (4) Continuous tobacco abuse: Status: Chronic (5) Stable angina: Status: Acute (6) Severe aortic stenosis: Present on admission Status: Acute Additional A&P Information PLAN: Continue with diuresis. Awaiting coronary angiogram tomorrow morning. Attestations Medical Necessity Statement*: Patient with acute heart failure and angina requires close inpatient monitoring, treatment evaluation Time Spent in Patient Care: 16 - 35 minutes Coding Level of Care Code Acute Perfect Binder Feeder Offbearer for [facility] Diagnoses Acute heart failure I50.9 Peripheral cyanosis R23.0 COPD (chronic obstructive pulmonary disease) J43.8 COPD type: emphysema Emphysema type: other Continuous tobacco abuse Z72.0 Stable angina I20.8 Severe aortic stenosis I35.0
[2020-05-02 11:10] VITALS: BP 108/75; PULSE 89; RESP 15; TEMP 36.9; O2SAT 97
[2020-05-02] MEDS: acetaminophen 325 mg Tablet 650 MG PO (13:17)
--- NOTE | 2020-05-02 14:07 | P.PN_ITS ---
Subjective Subjective: Interval history: Feeling better steadily continues to diurese well. Denies chest pain says shortness of breath has improved Vitals/I&O/Wt Last Vital Signs Temp 98.4 F 05/02/20 11:10 Pulse 89 05/02/20 11:10 Resp 15 05/02/20 11:10 BP 108/75 05/02/20 11:10 Pulse Ox 97 05/02/20 11:10 05/01/20 05/02/20 05/02/20 22:59 06:59 14:59 Intake Total 600 / 600 Output Total 1750 / 2570 675 / 3245 1275 / 1275 Balance -1750 / -1910 -675 / -2585 -675 / -675 Weight last 48 hrs Weight 157 lb 11.2 oz Weight 153 lb Physical Exam Narrative: EXAM NARRATIVE: GENERAL: Patient is alert, awake and oriented x3. NECK: No jugular vein distension. HEENT: No cyanosis. No icterus. No pallor. HEART: Regular S1 and S2. 2/6 sys murmur, rub or gallop. LUNGS: Clear to auscultate bilaterally. ABDOMEN: Soft, nontender and nondistended. Positive bowel sounds. No guarding, rebound or tenderness. CENTRAL NERVOUS SYSTEM: Grossly nonfocal. EXTREMITIES: Lower extremities without edema bilaterally. Data : 04/30/20 05:27 04/30/20 05:27 A&P Assessment and plan (1) New onset of congestive heart failure: Patient has new onset of heart failure with severely depressed LV function etiology could be ischemic versus valvular. Patient has moderate to severe aortic stenosis with low pressure gradient due to LV dysfunction. He is being diuresed. Continue IV diuresis. Once euvolemic we may will proceed with left and right heart cath for risk stratification and before recommending him aortic valve replacement. On today's visit dated 05/02/2020 patient says that he is steadily improving he has diuresed well overnight. If he remains euvolemic plan to perform left heart cath/right heart cath tomorrow in the evening around 430 Status: Acute (2) Severe aortic stenosis: We will proceed with left heart cath/right heart cath for preaortic valve replacement evaluation Status: Acute (3) COPD (chronic obstructive pulmonary disease): As per medicine. 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
[2020-05-02 15:12] VITALS: BP 107/79; PULSE 86; RESP 16; TEMP 36.8; O2SAT 96
[2020-05-02 19:37] VITALS: BP 114/78; PULSE 91; RESP 20; TEMP 36.3; O2SAT 94
[2020-05-02] MEDS: enoxaparin 40 mg/0.4 mL Syringe SUBCUT (21:31)
[2020-05-03] VITALS (16 sets, daily range): BP systolic 93–113; BP diastolic 64–83; PULSE 76–94; RESP 12–25; TEMP 36.5–37.1; O2SAT 94–99
[2020-05-03] MEDS: aspirin 81 mg EC Tablet PO (08:39)
[2020-05-03] MEDS: nicotine 21 mg Patch 1 PATCH TRANSDERMA (08:39)
[2020-05-03] MEDS: FUROsemide 10 mg/mL SDV 4mL 40 MG IVP (08:40)
--- NOTE | 2020-05-03 09:44 | P.PN_ITS ---
Subjective Subjective: Interval history: Patient denies any complaints this morning including shortness of breath or chest pain. Patient is scheduled for coronary angiogram. Vitals/I&O/Wt Last Vital Signs Temp 98.4 F 05/03/20 07:37 Pulse 92 05/03/20 07:37 Resp 18 05/03/20 07:37 BP 112/81 05/03/20 07:37 Pulse Ox 94 05/03/20 07:37 05/02/20 05/03/20 05/03/20 22:59 06:59 14:59 Intake Total 240 / 840 Output Total 2325 / 3600 250 / 3850 Balance -2085 / -2760 -250 / -3010 Weight last 48 hrs Weight 65.998 kg Weight 71.532 kg Physical Exam Narrative: EXAM NARRATIVE: Lungs are clear. Heart is regular. Abdomen soft and nontender with positive bowel sounds. No lower extremity edema. Data : 04/30/20 05:27 04/30/20 05:27 A&P Assessment and plan (1) Acute heart failure: Acute combined heart failure. EF 36% Status: Acute (2) Peripheral cyanosis: Status: Acute (3) COPD (chronic obstructive pulmonary disease): Status: Chronic Qualifiers: COPD type: emphysema Emphysema type: other Qualified Code(s): J43.8 - Other emphysema (4) Continuous tobacco abuse: Status: Chronic (5) Stable angina: Status: Acute (6) Severe aortic stenosis: Present on admission Status: Acute Additional A&P Information PLAN: Continue with current monitoring and treatment. Awaiting angiogram procedure. Attestations Medical Necessity Statement*: Patient with acute heart failure and decreased EF as well as signs and symptoms of angina requires close inpatient monitoring, treatment and evaluation. Coding Level of Care Code Acute Community Education Specialist for [facility] Fwd Diagnoses Acute heart failure I50.9 Peripheral cyanosis R23.0 COPD (chronic obstructive pulmonary disease) J43.8 COPD type: emphysema Emphysema type: other Continuous tobacco abuse Z72.0 Stable angina I20.8 Severe aortic stenosis I35.0
--- NOTE | 2020-05-03 11:30 | SUR.PHASEI ---
POST CATH NOTE Patient to CPRU for extended recovery until band removal and hemodynamically stable at which patient to return to 259-1. Vital Signs and access assessments per flowsheet. No bleeding concerns noted at this time. Verbal post cath instructions given. Call light within easy reach. Informed to call for needs. Discussed IV fluids post procedure with dr spear. States to PIID iv at this time. Noted.
--- NOTE | 2020-05-03 11:46 | SUR.PHASEI ---
IV flushed and PIID as ordered.
--- NOTE | 2020-05-03 12:30 | SUR.PREOP ---
TR BAND Band deflation began using standard protocol. No hematoma formation noted.
--- NOTE | 2020-05-03 13:08 | SUR.PHASEI ---
Brachial pressure bandage brachial pressure bandage removed. Venous access site free of s/s of active bleeding. No hematoma formation noted at this time. Band aid applied to site. Verbal post cath instructions given. Verbalized understanding.
--- NOTE | 2020-05-03 13:15 | SUR.PHASEI ---
TR band deflated and removed via protocol. No issues or bleeding noted. Verbal post cath instuctions went over in detail. Family and patient understood teaching. Band aid applied. Will continue to monitor.
--- NOTE | 2020-05-03 14:07 | PM.DCS ---
Discharge Providers Date of Admission: 04/29/20 18:40 Date of Discharge: May 03, 2020 Attending Provider at Admission: León Hagan MD Attending Provider at Discharge: León Hagan MD Diagnoses at Discharge Discharge Diagnosis (1) Acute heart failure: Status: Acute (2) Peripheral cyanosis: Status: Acute (3) COPD (chronic obstructive pulmonary disease): Status: Chronic Qualifiers: COPD type: emphysema Emphysema type: other Qualified Code(s): J43.8 - Other emphysema (4) Continuous tobacco abuse: Status: Chronic (5) Stable angina: Status: Acute (6) Severe aortic stenosis: Status: Acute Reason for Visit Reason for Visit: COPD, CHF Hospital Course Hospital Course Patient presented with acute heart failure and noted to have significantly decreased EF at 36% along with severe aortic stenosis. Patient had coronary angiogram showing no evidence of coronary artery disease requiring intervention. 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 This is likely also the cause of patient's occasional anginal episodes. Patient's medications were adjusted and during hospital stay patient was well diuresed and he appears to be safe to be dismissed home if okay from cardiology standpoint. Lasix, spironolactone and potassium were added along with lisinopril. I will avoid adding Coreg at this point and patient was told to keep blood pressure and heart rate log 3 times daily to present with Dr. Crawford next visit for medication adjustment. I will also request labs in several days with results sent to PCP and Dr. Crawford to make sure electrolytes within normal limits. This morning during my evaluation patient denies shortness of breath or chest pain. Dr. Crawford will discuss with Dr. Mariscal for surgical intervention. Physical Exam Narrative: EXAM NARRATIVE: Heart is regular and lungs are clear. No lower extremity edema. Discharge Data Data Completed and Pending: Completed Studies During Hospitalization Category Date Time Status CV echo complete* [id number] Routine Ultrasound 04/30/20 20:39 Completed Pending at discharge Category Date Time Status MAINTENANCE PIPEFITTER request for service Routin e Exams 05/03/20 16:30 Taken Arterial Blood Ga s W/[place] Stat Lab 04/29/20 21:35 Received Methemoglobin ABG Routine Lab 04/29/20 21:21 Ordered Vitals: Last Vital Signs Temp 98.7 F 05/03/20 14:04 Pulse 86 05/03/20 14:04 Resp 19 H 05/03/20 14:04 BP 104/73 05/03/20 14:04 Pulse Ox 98 05/03/20 14:04 Discharge Plan Discharge Patient Disposition: Home Condition: Stable Prescriptions: New furosemide [Lasix] 20 mg tablet 20 mg PO DAILY Qty: 30 RF: 0 potassium chloride [K-Tab] 10 mEq tablet extended release 10 meq PO DAILY Qty: 30 RF: 0 lisinopril 2.5 mg tablet 2.5 mg PO DAILY Qty: 30 RF: 0 spironolactone 25 mg tablet 25 mg PO DAILY Qty: 30 RF: 0 Continued aspirin 81 mg tablet,delayed release (DR/EC) 81 mg PO DAILY Qty: 30 RF: 0 Discharge Orders: Discharge Order (Routine); Ordered 05/03/20 Ordered By: León Hagan Other Ambulatory Orders: Comprehensive Metabolic Panel (Routine) Timeframe: [id number] Facility: [facility] - Location: Lab - Main Lab Ordered By: León Hagan Referrals: Go Mcdaniels [Referring] - 05/10/20 9:00 am Melida Crawford MD [Physician] - 1 week Discharge Diet: Usual diet Discharge Activity: Increase activity as tolerated Patient Instructions: Left Heart Catheterization (DC), Right Heart Catheterization (DC) Activity Restrictions/Additional Instructions: Please call your doctor or present to emergency department if your condition worsens or you develop diarrhea, lightheadedness, fatigue or see blood in your stool or black stool. Please keep blood pressure and heart rate log 3 times daily to present to Dr. Crawford next visit for medication adjustment. Please note that you will need to have lab work performed in several days to make sure your electrolytes within normal limits. During your next visit with Dr. 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
--- NOTE | 2020-05-03 16:30 | XACV_ITS ---
Exam Room: [facility] Ht: 173 cm Wt: 66 kg BSA: 1.78 m2 Gender: Male : 1955 Exam Priority: Routine Procedure(s): Procedure Description: Diagnostic procedure Procedure Description: Left Heart Catheterization Procedure Description: Right Heart Catheterization Diagnostic Cath Status: Elective Diagnostic Findings * No significant disease noted in the Left Main, LAD, Circumflex, or RCA coronary arteries. * Coronary angiography shows right dominance. Conclusions 1. No significant disease noted in the Left Main, LAD, Circumflex, or RCA coronary arteries. Recommendations * Continue current medical management and risk factor modification. Pressures Phase:Rest AO : 112 / 77 ( 91 ) @ 5:21:00 AM RV : 69 / 13 / @ 4:57:00 AM PA : 71 / 40 ( 52 ) @ 4:55:00 AM RA : a wave = v wave = mean = 16 @ 4:57:00 AM O2 Content Phase:Rest PA : O2 Content O2: 56.9 @ 5:21:00 AM Saturations Phase:Rest AO : 97 @ 5:21:00 AM RA : 57 @ 4:59:00 AM RV : 55 @ 4:55:00 AM PA : 57 @ 5:21:00 AM Cardiac Output Phase:Rest Madiha : 3 @ 5:21:00 AM Madiha Cardiac Index: 2 @ 5:21:00 AM Clinical Evaluation EBL: 5mL-10mL Procedural Details Procedure Consent Obtained. Admit Source: Out Patient. Pre-Procedure Time Out. Identified patient by full name and date of as verbalized by the patient/guarantor. Does the consent match the physician's order: Yes. Accurate & Complete Informed Consent: Yes. Inpatient/Outpatient History & Physical on Chart: Yes. If H&P is completed, is and addenduem needed: No; If yes, is the addendum complete: No. Visualize and Verify Site with Patient/Guarantor: N/A. Relevant Radiology Images available: N/A. Pre-op teaching completed and patient verbalized understanding. The risks, benefits, and alternatives of sedation and/or procedure were discussed by physician. The patient agrees to continue. Procedure started. Correct patient, site and procedure confirmed by cath team. PERRLA. Strong, equal hand pharmacist's aide bilaterally. Lungs clear x 5 lobes. IV Site on Arrival: 20 gauge in the left anticubital. IV Site on Arrival: 20 gauge in the right anticubital. Oxygen started at 2liters/min via nasal canula. bilateral groins was prepped with chloroprep then draped in the usual sterile fashion. right radial was prepped with chloroprep then draped in the usual sterile fashion. Baseline sample Acquired. HR: 79 BPM. Physician notified. Physician arrived. Physician scrubbed in. Immediate Pre-Procedure Time Out. Correct Patient: Yes; Correct Procedure: Yes; Correct Site: Yes; Correct Patient Position: Yes; Correct Supplies: Yes; Dried Flammable Prep: Yes; Blood Products Available: N/A;. Sheath wire inserted through IV catheter. wire out. [place] MON catheter inserted. touble with hemodynamic system. Delayed for starting. [place] out. Lidocaine 1% infiltrated to the right radial. Arterial access obtained. A 5 gambian TIG catheter in over wire. Multiple views taken of right coronary artery. Catheter redirected to the LCA. Multiple views taken of left coronary artery. Catheter out. A 5 gambian Angled Pig catheter in over wire. glide wire inserted. Catheter out. A 6 gambian MPA1 catheter in over wire. Catheter out. Patient's family updated. Sheath(s) removed and manual pressure held until hemostasis was achieved. Sterile 4x4 and Op-site applied to the puncture site. No oozing or hematoma noted. Post sheath removal instructions were given and the patient verbalized understanding. TR band placed. Hemostasis obtained. PERRLA. Strong, equal hand pharmacist's aide bilaterally. No VTE prophylaxis required. Medication's Wasted: Lidocaine 1% = 10 mL. Medication's Wasted: Nitro = 49.8 mg. Medication's Wasted: Heparin = 1000 units. Total IV fluids: 75 mL. Contrast type used: Omnipaque 300 mgI/mL, 500 mL bottle. Contrast Material : Omnipaque 64 ml. A TR Band was successful obtaining hemostatsis at the Right Radial artery insertion site. A Manual Compression was successful obtaining hemostatsis at the Right Brachial Vein insertion site. [facility] Clinical Fraility Score: 3: Managing Well. Lead Setter Indications:valvular disease, cardiomyopathy. Chest Pain Symptom Assessment: Atypical Angina. Cardiovascular Instability: No,. Post-op diagnosis: normal. Complications: none. Estimated blood loss: 5mL-10mL. Procedure completed. Patient transferred by wheelchair to CPRU. Vital chart was stopped. Access Site Site: Right Brachial Vein Sheath Size: 6 Fr Hemostasis Method: Manual Compression Hemostasis Success: Successful Site: Right Radial artery Sheath Size: 6 Fr Hemostasis Method: TR Band Hemostasis Success: Successful Procedure Medications Start: 10:40 AM Stop: 10:40 AM Medication: Versed Amount: 1 mg Route: I.V. Start: 10:40 AM Stop: 10:40 AM Medication: Fentanyl Amount: 50 mcg Route: I.V. Start: 10:56 AM Stop: 10:56 AM Medication: Versed Amount: 1 mg Route: I.V. Start: 10:56 AM Stop: 10:56 AM Medication: Fentanyl Amount: 50 mcg Route: I.V. Start: 11:00 AM Stop: 11:00 AM Medication: Benadryl Amount: 50 mg Route: I.V. Start: 11:02 AM Stop: 11:02 AM Medication: Nitrogylcerin Amount: 200 mcg Route: I.A. Start: 11:08 AM Stop: 11:08 AM Medication: Heparin Amount: 5000 units Route: I.V. I, the attending physician, have reviewed and verified all procedure medications. Yes, all medications given per verbal order History/Risk Factors Tobacco Use: Current/Recent(w/in 1 year) Report Signatures Finalized by Melida Crawford MD on 05/14/2020 04:50 PM
== END 2020-05-03 15:18 | disposition home or self-care (01) | DRG 287 ==
PROVIDERS: Internal Medicine; Internal Medicine Cardiovascular Disease; Admitting Provider Internal Medicine; Visit Provider Internal Medicine
PROC: B2161ZZ Fluoroscopy of Right and Left Heart using Low Osmolar Contrast (ICD-10-PCS; principal; 2020-05-03 11:25)
DX: I50.41 Acute combined systolic (congestive) and diastolic (congestive) heart failure (principal); I20.8 Other forms of angina pectoris; R23.0 Cyanosis; F17.210 Nicotine dependence, cigarettes, uncomplicated; I08.3 Combined rheumatic disorders of mitral, aortic and tricuspid valves; J43.8 Other emphysema
CPT/HCPCS: 12345; 36415; 36600; 71045; 80048; 80053; 80061; 82805; 83036; 83735; 84100; 84443; 84484; 85025; 93005; 93306; 93456; 93925; 96372; 99283; 99284; C1751; C1769; C1887; C1894; J1200; J1644; J1650; J1940; J2250; J3010; J3490; J7030; Q9967

== ENCOUNTER 2020-05-17 13:32 | Outpatient (CLI) | payer MEDICARE, SELFPAY ==
[2020-05-17 14:09] LABS: Alanine Aminotransferase 13 U/L (0-41); Albumin Level 4.3 g/dL (3.5-5.2); Alkaline Phosphatase 100 IU/L (40-130); Aspartate Amino Transferase 16 U/L (0-40); Blood Urea Nitrogen 15 mg/dL (8-23); Calcium 9.2 mg/dL (8.5-10.5); Carbon Dioxide 32 mmol/L (22-29); Chloride 99 mmol/L (98-107); Globulin 3.2 g/dL (1.3-4.6); Glomerular Filtration Rate 84.4 mL/min (90-130); Glucose 97 mg/dL (65-115); Osmolality Calculated 287 mOsm/kg (285-295); Sodium 138 mmol/L (136-145); Total Bilirubin 0.4 mg/dL (0.15-1.2); Total Protein 7.5 g/dL (6.6-8.7)
[2020-05-17 14:13] LABS: Anion Gap 11.2 (5-19); Potassium 4.2 mmol/L (3.5-5.1)
== END 2020-05-17 13:33 | disposition home or self-care (01) ==
LOC: LAB 13:36
PROVIDERS: Visit Provider Internal Medicine Cardiovascular Disease
DX: I50.9 Heart failure, unspecified (principal)
CPT/HCPCS: 36415; 80053

== ENCOUNTER 2020-06-09 10:35 | Outpatient (CLI) | payer MEDICARE, SELFPAY ==
--- NOTE | 2020-06-09 09:55 | USCV_ITS ---
Dobutamine Stress Echo Ga Vanegas Age: 65 Gender: M : 1955 Exam Date: 06/09/2020 12:35 Ordering Phys: Melida Crawford MD ([email or web address]) Technologist: Sunny Bailey Exam Location: [facility] [place] Indication: Aortic Stenosis- to evalualte for pseudoaortic stensosis Rhythm: Sinus Patient History: Coronary artery disease, CHF, Valvular heart disease, Hypertension, Smoker, Family history Cardiac Medications: RENÉ Inhibitor, Aspirin, Beta cathy Medications in past 24 hours: NONE Contrast: Total Dose (mL): Stress Results Protocol: Pharmacologic Peak Dose (???g/kg/min): 80 Duration (min:sec): 22:03 Atropine:(mg) 0.5 Target HR: 131 Double Product: 40556 Resting HR: 61 Resting BP: 142 / 86 Peak HR: 116 Peak BP: 268 / 123 Max Predicted HR: 154 75 % Max Predicted HR Stress Summary: The patient exhibited a hypertensive response with stress. The patient's target heart rate was not achieved. notified. Images obtained at maximum achieved which was 75% BP Response: Abnormal increase in BP during/after stress Reason for Termination: Protocol complete, The patients target heart rate was not achieved Cardiac Symptoms: None ECG Analysis Resting EKG: Stress EKG: Arrhythmia: MEASUREMENTS (Male/Female) Normal Values FINDINGS Dobutamine stress echo was performed to differentiate between true aortic stenosis versus pseudoaortic stenosis Baseline: Left ventricle ejection fraction is severely depressed with global hypokinesis. Estimated ejection fraction 25%. Aortic valve is severely calcified. There appeared to be severe aortic stenosis with aortic valve area of 0.6 cm squared, while aortic valve area index of 0.34. Mean gradient across the aortic valve is 23 mmHg, valve peak gradient is 49 mmHg. Velocity across the aortic valve is 3.5 m/s, there appeared to be no aortic valve regurgitation. At the peak dobutamine dose target heart rate was not achieved though patient attained 75% of the predicted heart rate At the peak exercise level left ventricle ejection fraction improved from severely depressed 25% to moderately depressed 40% with moderate augmentation of left ventricle cavity. Calculated aortic valve area improved from severely stenotic 0.6cm squared to 0.8 cm squared which still is in severely category. Mean gradient wor[place] from 23 mmHg to 27 mmHg, while peak gradient increased from 49 mmHg to 60 mmHg. Velocity across the aortic valve has also increased from 3.5 to 3.7 m/s. CONCLUSIONS 1-Low pressure gradient severe aortic stenosis with improved left ventricle ejection fraction from severely depressed 25% to moderately depressed 40% in response to dobutamine infusion. Patient may will be benefited from aortic valve replacement. 2-No significant ischemia noted on the study, however it is a submaximal stress test due to under achievement of target heart rate, therefore specificity and sensitivity of the stress echo to detect ischemia will be of low yield. Melida Crawford MD Edited by: CV Rod Placer (Electronically Signed) Final Date: 09 June 2020 21:14 Amended: 10 June 2020 09:48 C
[2020-06-09 10:52] VITALS: BMI 20.9
--- NOTE | 2020-06-09 10:59 | ECG_ITS ---
[facility] Test Date: 2020-06-09 Pat Name: Ga Vanegas Department: Room: Gender: Male Director Digital Communications: : 1955 Requested By: Melida Crawford Order Number: [id number] Paul MD: MELIDA CRAWFORD Interpretive Statements NAME OF STUDY: DOBUTAMINE STRESS ECHOCARDIOGRAM INDICATION: Aortic Stenosis To evaluate for psuedoaortic stenosis EXERCISE DATA: The patient was infused dobutamine as per protocol. Baseline heart rate was 61 beats per minute. Baseline blood pressure was 142/86 millimeters of mercury. Target heart rate was 154 beats per minute. Maximum heart rate achieved was 116, which was 75 % of the target heart rate. Maximum blood pressure was 268/123 millimeters of mercury. Maximum infusion rate was 80 mcg/kg/min 0.5 mg of atropine was also used to increase the heart rate. The reason for ending the test was completion of the protocol. The patient complained of shortness of breath during the stress test, which then resolved at the end of the test. ELECTROCARDIOGRAM: BASELINE: Sinus rhythm, normal axis, left ventricle hypertrophy, inferolateral inverted T wave could be liberalization normality cannot rule out ischemia EXERCISE: At the peak exercise level, no significant ST-T changes suggestive of ischemia noted. RECOVERY: During the recovery period, heart rate dropped appropriately. No significant ST-T changes in the recovery suggestive of ischemia noted. CONCLUSION: 1. Maximum heart rate was not achieved 2. Heart rate response was not appropriate. 3. Blood pressure response was hypertensive. 4. Symptoms not suggestive of ischemia. 5. Electrocardiogram portion of the stress test was not suggestive of ischemia. 6. Echocardiographic portion of the stress test will be documented separately.. Electronically Signed On 06-13-2020 20:40:50 CDT by MELIDA CRAWFORD [id number]
--- NOTE | 2020-06-09 12:38 | SUR.PREOP ---
Patient reports no pain or discomfort prior to the start of the procedure.
[2020-06-09] MEDS: sodium chloride 0.9% 250 ML 50 ML IV (12:39)
[2020-06-09] MEDS: DOBUTtamine 200 MG in sodium chloride 0.9% 34 ML 9 MG IV (12:40)
[2020-06-09] MEDS: atropine 0.1 mg/mL Syr 10 mL 0.5 MG IVP (12:58)
[2020-06-09 13:25] VITALS: BP 85/66; PULSE 92
== END 2020-06-09 10:36 | disposition home or self-care (01) ==
LOC: RAD 10:36 → CDL 10:42
PROVIDERS: PCP Physician Assistant Medical; Visit Provider Internal Medicine Cardiovascular Disease
DX: R07.9 Chest pain, unspecified (principal); I35.0 Nonrheumatic aortic (valve) stenosis; I10 Essential (primary) hypertension
CPT/HCPCS: 93017; 93350; J0461; J1250; J7050

== ENCOUNTER → 2020-10-08 11:15 | Outpatient (BNVA) | payer MEDICARE, SELFPAY | PROVIDERS: PCP Physician Assistant Medical; Visit Provider Thoracic Surgery (Cardiothoracic Vascular Surgery) | DX: Z20.822 Contact with and (suspected) exposure to COVID-19 (principal); Z11.52 Encounter for screening for COVID-19 | CPT/HCPCS: 87635 ==

== ENCOUNTER 2020-10-14 09:40 | Outpatient (CLI) | payer MEDICARE, SELFPAY ==
--- NOTE | 2020-10-14 10:11 | PFTS_ITS ---
Date of Study:10/14/20 Date of Dictation: 10/22/20 MECHANICS: Prebronchodilator forced vital capacity (FVC) is normal. . Prebronchodilator forced expiratory volume in one second (FEV1) is normal. FEV1/FVC is reduced. There is no postbronchodilator study FLOW VOLUME LOOP: normal . LUNG VOLUMES: Total lung capacity (TLC) is mildly reduced. Residual volume (RV) is reduced. DIFFUSING CAPACITY FOR CARBON MONOXIDE: normal. . INTERPRETATION: The PFTs showed mixed obstructive and restrictive pattern. Prebronchodilator spirometry shows mild obstruction there is lung volumes show mild restriction. Gas transfer is normal. Correlate clinically. MTDD
== END 2020-10-14 09:41 | disposition home or self-care (01) ==
LOC: RT 09:42
PROVIDERS: PCP Physician Assistant Medical; Visit Provider Thoracic Surgery (Cardiothoracic Vascular Surgery)
DX: I35.0 Nonrheumatic aortic (valve) stenosis (principal); Z72.0 Tobacco use
CPT/HCPCS: 94010; 94726; 94729

== ENCOUNTER → 2021-11-17 10:35 | Outpatient (BNVA) | payer MEDICARE, SELFPAY | PROVIDERS: PCP Physician Assistant Medical; Visit Provider Internal Medicine Cardiovascular Disease | DX: I50.9 Heart failure, unspecified (principal); I34.0 Nonrheumatic mitral (valve) insufficiency; Z95.2 Presence of prosthetic heart valve; I48.91 Unspecified atrial fibrillation; Z98.890 Other specified postprocedural states; Z86.79 Personal history of other diseases of the circulatory system; J43.8 Other emphysema; I07.1 Rheumatic tricuspid insufficiency; F17.200 Nicotine dependence, unspecified, uncomplicated | CPT/HCPCS: 99214 ==

== ENCOUNTER → 2023-10-08 11:17 | Outpatient (BNVA) | payer MEDICARE, SELFPAY | PROVIDERS: PCP Physician Assistant Medical; Visit Provider Internal Medicine Cardiovascular Disease | DX: I50.9 Heart failure, unspecified (principal); I42.0 Dilated cardiomyopathy; I34.0 Nonrheumatic mitral (valve) insufficiency; M62.81 Muscle weakness (generalized); Z95.2 Presence of prosthetic heart valve; I48.91 Unspecified atrial fibrillation; Z98.890 Other specified postprocedural states; Z86.79 Personal history of other diseases of the circulatory system; J43.8 Other emphysema; Z72.0 Tobacco use | CPT/HCPCS: 99214 ==

== ENCOUNTER → 2024-11-07 08:54 | Outpatient (BNVA) | payer MEDICARE, SELFPAY | PROVIDERS: PCP Physician Assistant Medical; Visit Provider Internal Medicine Cardiovascular Disease | DX: I34.0 Nonrheumatic mitral (valve) insufficiency (principal); I48.91 Unspecified atrial fibrillation; J44.9 Chronic obstructive pulmonary disease, unspecified; M62.81 Muscle weakness (generalized); Z79.82 Long term (current) use of aspirin; Z98.890 Other specified postprocedural states; Z95.2 Presence of prosthetic heart valve; F17.200 Nicotine dependence, unspecified, uncomplicated; R00.2 Palpitations; I42.9 Cardiomyopathy, unspecified | CPT/HCPCS: 99214 ==